=== PATIENT | male | born 1990 | race Caucasian/White ===

== ENCOUNTER 2018-09-16 08:45 | Emergency (ER) | payer BC, MEDICARE ==
[~2018-09-16] VITALS: Ht 157.5 cm; Wt 117.3 kg
[~2018-09-16 08:45] MED LIST: NOCURR
[2018-09-16 08:55] VITALS: BP 144/84
[2018-09-16] MEDS ORDERED: ACETAMINOPHEN 500 MG TABLET PO ONE (09:45)
== END 2018-09-16 10:03 | disposition home or self-care (01) ==
LOC: EMS 08:46
DX: H60.93 Unspecified otitis externa, bilateral (principal)